=== PATIENT | male | born 1970 | race Caucasian/White ===

== ENCOUNTER 2022-02-26 05:44 | Emergency (ER) | payer OTHER ==
[~2022-02-26] VITALS: Ht 162.6 cm; Wt 84.4 kg
[~2022-02-26 05:44] MED LIST: CLONAZEPAM1 MG PO; DOCUSATE SODIU100 MG PO; PERCOCET 5/3251 TAB PO
[2022-02-26] MEDS ORDERED: TOPROL XL50 M1 (05:54)
== END 2022-02-26 14:21 | disposition home or self-care (01) ==
LOC: ER 05:44
DX: J45.909 Unspecified asthma, uncomplicated (principal); S00.93XA Contusion of unspecified part of head, initial encounter; W18.30XA Fall on same level, unspecified, initial encounter; Y93.89 Activity, other specified; Y92.9 Unspecified place or not applicable; Y99.9 Unspecified external cause status; Z20.822 Contact with and (suspected) exposure to COVID-19; E11.9 Type 2 diabetes mellitus without complications

== ENCOUNTER 2023-02-18 05:13 | Emergency (ER) | payer OTHER ==
[~2023-02-18] VITALS: Ht 162.6 cm; Wt 88.5 kg
[~2023-02-18 05:13] MED LIST changes: +TOPROL XL50 M1
[2023-02-18] MEDS ORDERED: LIPITOR20 MG PO (05:31)
[2023-02-18] MEDS ORDERED: NEURONTIN600 M1 PO (05:31)
[2023-02-18] MEDS ORDERED: PEPCID AC20 MG PO (07:08)
[2023-02-18] MEDS ORDERED: LEVSIN/SL0.125 MG SL (07:08)
[2023-02-18] MEDS ORDERED: ZOFRAN8 MG PO (07:08)
== END 2023-02-18 07:55 | disposition home or self-care (01) ==
LOC: ER 05:13
DX: R11.2 Nausea with vomiting, unspecified (principal); R10.13 Epigastric pain; R10.9 Unspecified abdominal pain; I10 Essential (primary) hypertension